=== PATIENT | female | born 1945 | race Caucasian/White ===

== ENCOUNTER 2016-10-08 14:15 | Emergency (ER) | payer MEDICARE, OTHER ==
[~2016-10-08] VITALS: Ht 154.9 cm; Wt 118.2 kg
[~2016-10-08 14:15] MED LIST: ADV25050 INH; ASPI-664 PO; ATOR10TA23 PO; DULO60CA6 PO; FENO145T19 PO; GEMF600T PO; HYDR-3672 PO; HYDR-902 PO; IPRA14.76 IH; LEVO25TA53 PO; LEVO500T10 PO; LORA1TAB PO; NEBI20TA2 PO; NIT4 SL; PRED20TA PO; Promethazine/Codeine Syp PO; RANO500T2 PO; ROPI2TAB7 PO; VALS1TAB60 PO; VERA240C4 PO; [UNRECOGNIZED DRUG - CODE] IH
[2016-10-08 14:29] VITALS: Ht 154.9 cm; Wt 118.2 kg
[2016-10-08] MEDS ORDERED: SOD CHLORIDE 0.9% 500 ML IV STA (14:45)
[2016-10-08] MEDS ORDERED: ROPI0.25 PO (14:45)
[2016-10-08] MEDS ORDERED: ALBU8.5H3 INH ×2 (14:46→17:58)
[2016-10-08] MEDS ORDERED: METHYLPREDNISOLONE 125 MG INJ IV ONE (15:00)
[2016-10-08] MEDS ORDERED: ALBUTEROL 0.5% (NEB) 2.5 MG/0.5 ML AMP INH ONE (15:00)
[2016-10-08] MEDS ORDERED: IPRATROPIUM (NEB) 0.5 MG/2.5 ML AMP INH ONE (15:00)
[2016-10-08] MEDS ORDERED: LORAZEPAM 2 MG INJ ONE (15:09)
--- NOTE | 2016-10-08 15:21 | RADRPT ---
PROCEDURE: XR Chest. CLINICAL INDICATION: Shortness of breath TECHNIQUE: Chest AP portable. COMPARISON: 08/25/2016 FINDINGS: The mediastinal structures are unremarkable. There is calcification of the thoracic aorta (consiste nt with atherosclerosis). There is moderate cardiac enlargement. There is mild pulmonary venous hy pertension. No consolidation is identified. The pleural spaces are unremarkable. There are senesc ent changes of the axial skeleton. IMPRESSION: Moderate cardiac enlargement. Mild pulmonary venous hypertension. RPTAT: HGDB .Isak Farmer MD, MD Date Time Electronically viewed and signed by .Isak Farmer MD, on 10/08/2016 15:21 .B/
[2016-10-08 15:23] LABS: BASOPHILS % 0.5 % (0.0-2.0); EOSINOPHILS # 0.3 10^3/ul (0.0-0.5); EOSINOPHILS % 3.1 % (0.0-7.0); HEMATOCRIT 34.8 % (37.0-47.0); HEMOGLOBIN 11.3 g/dl (12.0-16.0); LYMPHOCYTES # 2.3 10^3/ul (0.8-2.9); LYMPHOCYTES % 24.2 % (15.0-51.0); MEAN CORPUSCULAR HEMOGLOBIN 26.4 pg (29.0-33.0); MEAN CORPUSCULAR HGB CONC 32.4 g/dl (32.0-37.0); MEAN CORPUSCULAR VOLUME 81.5 fl (82.0-101.0); MEAN PLATELET VOLUME 8.2 fl (7.4-10.4); MONOCYTE # 0.7 10^3/ul (0.3-0.9); MONOCYTES % 7.7 % (0.0-11.0); NEUTROPHIL # 6.1 10^3/ul (1.6-7.5); NEUTROPHILS % 64.5 % (39.0-77.0); PLATELET COUNT 311 10^3/UL (140-440); RED BLOOD COUNT 4.28 10^6/ul (4.20-5.40); RED CELL DISTRIBUTION WIDTH 15.9 % (11.5-14.5); UNCORRECTED WBC 9.4 10^3/ul (4.8-10.8); WHITE BLOOD COUNT 9.4 10^3/ul (4.8-10.8)
[2016-10-08] MEDS ORDERED: LORAZEPAM 2 MG INJ IV ONE (15:30)
[2016-10-08] MEDS ORDERED: DICLOFENAC SODIUM 37.5 MG/ML VIAL IV STA (15:33)
[2016-10-08 15:40] LABS: CONDITION 1; LH ANALYZER COMMENTS 1
[2016-10-08 15:41] LABS: ALBUMIN 3.9 g/dl (3.3-4.9)
[2016-10-08 15:42] LABS: POTASSIUM 4.5 mmol/L (3.5-5.1)
[2016-10-08 15:44] LABS: ALBUMIN/GLOBULIN RATIO 1.3; BILIRUBIN,INDIRECT 0.1 mg/dl (0-1.1); BILIRUBIN,TOTAL 0.1 mg/dl (0.2-1.3); CREATININE 1.06 mg/dl (0.44-1.00); TOTAL PROTEIN 6.9 g/dl (6.1-8.1)
[2016-10-08 15:45] LABS: CALCIUM 9.2 mg/dl (8.4-10.2)
[2016-10-08] MEDS ORDERED: HYDROmorphONE 1 MG/ML SYG IV STA (16:10)
[2016-10-08] MEDS ORDERED: ONDANSETRON 4 MG INJ IV STA (16:10)
[2016-10-08] MEDS ORDERED: PRED20TA PO (17:58)
[2016-10-08] MEDS ORDERED: AZIT250T94 PO (17:58)
[2016-10-08] MEDS ORDERED: ULT50 PO (17:58)
--- NOTE | 2016-10-08 18:07 | ERD ---
ER Documentation Chief Complaint Date/Time DATE: 10/08/16 TIME: 18:02 Chief Complaint BROUGHT IN VIA EMS DUE TO SHORTNESS OF BREATH AND ANXIETY HPI This is 71-year-old female who is complaining of cough for 1 week having some productive clear sputum for the past 3 days. No fever. Patient says that she was having some wheezing today she called the ambulance. She also states she has chronic bilateral hip pain from arthritis and right knee pain because she needs a knee replacement. She has no shortness of breath chest pain fever no diaphoresis ROS All systems reviewed and are negative except as per history of present illness. Medications Home Meds Active Scripts Azithromycin* (Zithromax*) 250 Mg Tablet, 250 MG PO .ZPACK DIRECTED, #6 TAB TAKE 500 MG (2 TABS) THE FIRST DAY THEN 250 MG (1 TAB) DAYS 2-5 Prov:ANH DOLAN DO 10/08/16 Albuterol Sulfate* (Proair HFA*) 8.5 Gm Hfa.aer.ad, 2 PUFF INH Q6H Y for WHEEZING AND SOB, #1 INHALER Prov:ANH DOLAN DO 10/08/16 Prednisone* (Prednisone*) 20 Mg Tab, 60 MG PO DAILY for 5 Days, TAB Prov:ANH DOLAN DO 10/08/16 Tramadol HCl (Tramadol HCl) 50 Mg Tablet, 50 MG PO Q6, #20 TAB Prov:ANH DOLAN DO 10/08/16 Reported Medications Albuterol Sulfate* (Proair HFA*) 8.5 Gm Hfa.aer.ad, 2 PUFF INH Q4H Y for WHEEZING AND SOB, #1 INHALER 10/08/16 Ropinirole Hcl* (Ropinirole Hcl*) 0.25 Mg Tablet, 0.25 MG PO HS, TAB 10/08/16 Fenofibrate Nanocrystallized* (Fenofibrate*) 145 Mg Tablet, 145 MG PO DAILY, TAB 08/24/16 Ranolazine* (Ranexa*) 500 Mg Tab.sr.12h, 500 MG PO BID, TAB 08/24/16 Nitroglycerin* (Nitrostat*) 0.4 Mg Tab.subl, 0.4 MG SL Q5MIN Y for CHEST PAIN 12/16/13 Aspirin (Aspirin) 81 Mg Tablet.dr, 81 MG PO DAILY 12/16/13 Hydralazine Hcl* (Hydralazine Hcl*) 50 Mg Tablet, 100 MG PO TID 12/16/13 Lorazepam* (Lorazepam*) 1 Mg Tablet, 1 MG PO BID Y for ANXIETY 12/16/13 Nebivolol Hcl* (Bystolic*) 20 Mg Tablet, 20 MG PO DAILY 12/16/13 Ipratropium/Albuterol Sulfate (Combivent Inhaler) 14.7 Gm Aer.w.adap, 14.7 GM IH BID 09/29/11 Valsartan-Hydrochlorothiazide (Diovan HCT) 1 Tab Tablet, 1 TAB PO DAILY 09/29/11 Levothyroxine Sodium* (Levothyroxine Sodium*) 25 Mcg Tablet, 25 MCG PO DAILY 09/29/11 Atorvastatin (Lipitor) 10 Mg Tablet, 20 MG PO DAILY 09/29/11 Discontinued Reported Medications Hydrocodone/Acetaminophen ([place] 10-325 Tablet) 1 Each Tablet, 1 EACH PO Q6 Y for PAIN, TAB 08/24/16 Gemfibrozil* (Lopid*) 600 Mg Tablet, 600 MG PO BID, TAB 03/04/14 Albuterol/Ipratropium (Combivent) 14.7 Gm Inha, 14.7 GM IH BID for SHORTNESS OF BREATH 12/16/13 Salmeterol Xinaf/Fluticasone* (Advair*) 1 Inh Inha, 1 INH INH DAILY 12/16/13 Duloxetine Hcl* (Cymbalta*) 60 Mg Capsule.dr, 60 MG PO belem 12/16/13 Verapamil Hcl* (Verapamil Hcl*) 240 Mg Cap24h.pel, 240 MG PO BID 09/29/11 Ropinirole Hcl (Requip) 2 Mg Tablet, 0.25 MG PO DAILY 09/29/11 Discontinued Scripts Levofloxacin* (Levofloxacin*) 500 Mg Tablet, 500 MG PO DAILY for Pneumonia , #7 TAB Prov:FREYA ELIZABETH MD 08/26/16 Prednisone* (Prednisone*) 20 Mg Tab, 20 MG PO DAILY, #7 TAB Prov:FREYA ELIZABETH MD 08/26/16 [Promethazine/Codeine Syp] 5 ML SYRUP No Conflict Check, 10 ML PO Q6H Y for COUGH, #240 ML Prov:FREYA ELIZABETH MD 08/26/16 Allergies Allergies: Coded Allergies: morphine (Verified Allergy, Severe, NAUSEA, VOMITING, SHORTNESS OF BREATH , 07/13/16) Uncoded Allergies: IV IODINE (Allergy, Unknown, 07/13/16) PMhx/Soc History of Surgery: Yes (2hip surgery-21yrs) Anesthesia Reaction: No Hx Neurological Disorder: No Hx Respiratory Disorders: Yes (Asthma, Bronchitis, PNA) Hx Cardiac Disorders: Yes (HTN) Hx Psychiatric Problems: Yes (depression, anxiety) Hx Miscellaneous Medical Probl: No Hx Alcohol Use: No Hx Substance Use: No Hx Tobacco Use: No Smoking Status: Never smoker FmHx Family History: No coronary disease Physical Exam Vitals Vital Signs Date Time Temp Pulse Resp B/P Pulse Ox O2 Delivery O2 Flow Rate FiO2 10/08/16 15:21 98.3 86 20 98/58 98 Room Air 10/08/16 15:17 79 18 95 21 10/08/16 14:58 Nasal Cannula 10/08/16 14:29 98.5 70 18 127/63 94 Physical Exam Const: Well-developed, well-nourished Head: Atraumatic, normocephalic Eyes: Normal Conjunctiva, PERRLA, EOMI, normal sclera, no nystagmus ENT: Normal External Ears, Nose and Mouth, moist mucus membranes. Neck: Full range of motion. No meningismus, no lymphadenopathy. Resp: No increased work of breathing there is some slight end expiratory wheezing scattered throughout the lung andrade Cardio: Regular rate and rhythm, no murmurs, S1 S2 present Abd: Soft, non tender x 4, non distended. Normal bowel sounds, no guarding or rebound, no pulsitile abdominal masses or bruits Skin: No petechiae or rashes, no ecchymosis , no maculopapular rash Back: No midline or flank tenderness Ext: No cyanosis, or edema, FROM x 4 there is pain to both hips with range of motion in right knee which is chronic., normal inspection, neurovascularly intact x 4 Neur: Awake and alert, STR 5/5 x 4, sensation intact x 4, no focal findings, cerebellum intact Psych: Anxious Result Diagram: 10/08/16 1445 10/08/16 1445 Results 24 hrs Laboratory Tests Test 10/08/16 14:45 Alanine Aminotransferase (ALT/SGPT) 22IU/L Albumin 3.9g/dl Albumin/Globulin Ratio 1.30 Alkaline Phosphatase 52IU/L Anion Gap 17 Aspartate Amino Transf (AST/SGOT) 19IU/L Basophils # 0.010^3/ul Basophils % 0.5% Blood Morphology Comment Blood Urea Nitrogen 30mg/dl Calcium Level 9.2mg/dl Carbon Dioxide Level 28mmol/L Chloride Level 103mmol/L Creatinine 1.06mg/dl Direct Bilirubin 0.00mg/dl Eosinophils # 0.310^3/ul Eosinophils % 3.1% Globulin 3.00g/dl Glucose Level 83mg/dl Hematocrit 34.8% Hemoglobin 11.3g/dl Indirect Bilirubin 0.1mg/dl Lymphocytes # 2.310^3/ul Lymphocytes % 24.2% Mean Corpuscular Hemoglobin 26.4pg Mean Corpuscular Hemoglobin Concent 32.4g/dl Mean Corpuscular Volume 81.5fl Mean Platelet Volume 8.2fl Monocytes # 0.710^3/ul Monocytes % 7.7% Neutrophils # 6.110^3/ul Neutrophils % 64.5% Nucleated Red Blood Cells # 0.010^3/ul Nucleated Red Blood Cells % 0.0/100WBC Platelet Count 22674^3/UL Potassium Level 4.5mmol/L Red Blood Count 4.2810^6/ul Red Cell Distribution Width 15.9% Sodium Level 143mmol/L Total Bilirubin 0.1mg/dl Total Protein 6.9g/dl White Blood Count 9.410^3/ul Current Medications Medications (Trade) Dose Ordered Sig/Karina Route PRN Reason Start Time Stop Time Status Last Admin Dose Admin Sodium Chloride (NS) 500 ml @ 500 mls/hr Q1H STAT IV 10/08/16 14:45 10/08/16 15:44 DC 10/08/16 15:14 Albuterol (Proventil 0.5% (Neb)) 7.5 mg ONCE ONCE INH 10/08/16 15:00 10/08/16 15:01 DC 10/08/16 15:14 Ipratropium [place] (Atrovent 0.02% (Neb)) 0.5 mg ONCE ONCE INH 10/08/16 15:00 10/08/16 15:01 DC 10/08/16 15:16 Methylprednisolone Sodium Succinate (Solu-Medrol) 125 mg ONCE ONCE IV 10/08/16 15:00 10/08/16 15:01 DC 10/08/16 15:12 Lorazepam (Ativan) 1 mg ONCE ONCE IV 10/08/16 15:30 10/08/16 15:31 DC 10/08/16 15:40 Lorazepam (Ativan) 2 mg STK-MED ONCE .ROUTE 10/08/16 15:09 10/08/16 15:10 DC Diclofenac Sodium (Dyloject) 37.5 mg ONCE STAT IV 10/08/16 15:33 10/08/16 15:34 DC 10/08/16 15:40 Hydromorphone HCl (Dilaudid) 1 mg ONCE STAT IV 10/08/16 16:10 10/08/16 16:11 DC 10/08/16 17:58 Ondansetron HCl (Zofran Inj) 4 mg ONCE STAT IV 10/08/16 16:10 10/08/16 16:11 DC 10/08/16 17:57 Procedures/MDM PROCEDURE: XR Chest. CLINICAL INDICATION: Shortness of breath TECHNIQUE: Chest AP portable. COMPARISON: 08/25/2016 FINDINGS: The mediastinal structures are unremarkable. There is calcification of the thoracic aorta (consistent with atherosclerosis). There is moderate cardiac enlargement. There is mild pulmonary venous hypertension. No consolidation is identified. The pleural spaces are unremarkable. There are senescent changes of the axial skeleton. IMPRESSION: Moderate cardiac enlargement. Mild pulmonary venous hypertension. RPTAT: HGDB .Isak Farmer MD, Date Time Electronically viewed and signed by .Isak Farmer MD, on 10/08/2016 15:21 .B/ CC: ANH DOLAN DO EKG: Rate/Rhythm: Normal sinus rhythm heart rate 62, incomplete right bundle branch block QRS, ST, QT: NORMAL LA, QRS, QT] Impression: NORMAL EKG Patient received breathing treatments and is feeling better. X-ray shows no acute process. She received pain medication for her hip and knee pain. This is a chronic issue. No evidence of pneumonia. Patient likely has bronchitis/URI will treat symptomatically Departure Diagnosis: Primary Impression: Bronchitis Additional Impression: Chronic pain Chronic pain type: other chronic pain Qualified Code: G89.29 - Other chronic pain Condition: Stable Patient Instructions: Bronchitis, Antiobiotic Treatment (Adult), Chronic Pain ANH DOLAN DO Oct 08, 2016 18:07
[2016-10-08 18:49] VITALS: BP 129/86; PULSE 73; RESP 20; TEMP 98.3
== END 2016-10-08 18:49 | disposition home or self-care (01) ==
LOC: E/R 14:15
DX: J20.9 Acute bronchitis, unspecified (principal); G89.29 Other chronic pain; J45.909 Unspecified asthma, uncomplicated; I10 Essential (primary) hypertension; Z79.82 Long term (current) use of aspirin
CPT/HCPCS: 36415; 71010; 80053; 85025; 87040; 93005; 94664; 96374; 96375; 99284; J1170; J2060; J2405; J2930; J7040

== ENCOUNTER 2018-03-08 19:44 | Emergency (ER) | END 2018-03-09 00:30 | disposition home or self-care (01) ==

== ENCOUNTER 2018-03-29 15:06 | Emergency (ER) | END 2018-03-29 20:44 | disposition home or self-care (01) ==

== ENCOUNTER 2018-04-09 12:04 | Emergency (ER) | END 2018-04-09 16:43 | disposition home or self-care (01) ==

== ENCOUNTER 2018-06-15 05:12 | Inpatient (IN) | END 2018-06-18 20:05 | disposition home or self-care (01) | DRG 308 ==

== ENCOUNTER 2018-10-03 13:20 | Emergency (ER) | payer MEDICARE, OTHER ==
[~2018-10-03] VITALS: Wt 81.5 kg
[~2018-10-03 13:20] MED LIST changes: -ADV25050 INH; +ALBU8.5H8 INH; +AMLO-147 PO; +ASPI-1044 PO; -ASPI-664 PO; +BISA5TAB6 PO; +CHOL100062 PO; +D-ME473S2 PO; +DOCU-216 PO; -DULO60CA6 PO; -FENO145T19 PO; +FENO145T37 PO; +GABA100C14 PO; -GEMF600T PO; -HYDR-902 PO; +HYDR25SU23 PR; -IPRA14.76 IH; -LEVO25TA53 PO; +LEVO25TA6 PO; -LEVO500T10 PO; +MAG355OR14 PO; +NAPR-985 PO; -NEBI20TA2 PO; -NIT4 SL; +NITR0.4T39 SL; -PRED20TA PO; -Promethazine/Codeine Syp PO; -ROPI2TAB7 PO; -VALS1TAB60 PO; -VERA240C4 PO
--- NOTE | 2018-10-03 14:16 | ERD ---
ER Documentation Chief Complaint Chief Complaint bib self, cc: migraine x 3 weeks, chronic migraines, HPI The patient is a 73-year-old female, presenting to the ER because of acute on chronic migraine for the last 3 weeks, unrelieved with Imitrex, she has similar symptoms previously, relieved with Dilaudid. She is requesting for pain medication. She denies fever, chills, syncope, near syncope, facial pain, neck pain, chest pain, dyspnea, abdominal pain, vomiting, dysuria. She has headache almost daily, denies smoking or drinking Past medical history: Migraine, dyslipidemia, hypertension, anxiety, hypothyroidism, dyslipidemia, COPD, chronic kidney disease, CAD, carotid disease, history of narcotic dependence ROS All systems reviewed and are negative except as per history of present illness. Medications Home Meds Active Scripts Hydrocortisone Acetate (Anusol-Hc) 25 Mg Supp.rect, 25 MG OK BID for 28 Days, #30 SUPP.RECT Prov:ARELI NETTLES MD 06/18/18 Docusate Sodium (Dok) 100 Mg Capsule, 100 MG PO Q12H PRN for CONSTIPATION for 28 Days, #30 CAP Prov:ARELI NETTLES MD 06/18/18 Bisacodyl* (Bisacodyl*) 5 Mg Tablet.dr, 5 MG PO DAILY PRN for CONSTIPATION for 28 Days, #30 Prov:ARELI NETTLES MD 06/18/18 Dextromethorphan Hb-Promethazine Hcl* (Promethazine DM* Syrup) 473 Ml Syrup, 5 ML PO Q6H PRN for COUGH for 7 Days, #10 Prov:ARELI NETTLES MD 06/18/18 Gabapentin* (Gabapentin*) 100 Mg Capsule, 200 MG PO TID for 30 Days, #60 CAP Prov:ARELI NETTLES MD 06/18/18 Amlodipine Besylate* (Amlodipine Besylate*) 10 Mg Tablet, 10 MG PO DAILY for 28 Days, #30 TAB Prov:ARELI NETTLES MD 06/18/18 Mag Hydrox/Al Hydrox/Simeth (Maalox Advanced Suspension) 355 Ml Oral.susp, 2 TSP PO TID, #24 OZ Prov:DARLENE ALCALA MD 04/09/18 Naproxen* (Naprosyn*) 500 Mg Tablet, 500 MG PO BID PRN for PAIN AND/OR INFLAMMATION, #30 TAB Prov:SCOTT ROSENTHAL MD 03/29/18 Reported Medications Cholecalciferol* (Vitamin D3*) 1,000 Unit Tablet, 1000 UNIT PO DAILY, TAB 03/08/18 Albuterol Sulfate* (Proair HFA*) 8.5 Gm Hfa.aer.ad, 2 PUFF INH Q4H PRN for WHEEZING AND SOB, #1 INHALER 10/08/16 Fenofibrate Nanocrystallized* (Fenofibrate*) 145 Mg Tablet, 145 MG PO DAILY, TAB 08/24/16 Ranolazine* (Ranexa*) 500 Mg Tab.sr.12h, 500 MG PO BID, TAB 08/24/16 Nitroglycerin* (Nitrostat*) 0.4 Mg Tab.subl, 0.4 MG SL Q5MIN PRN for CHEST PAIN 12/16/13 Aspirin Delayed Release (Aspirin Delayed Release) 81 Mg Tablet.dr, 81 MG PO DAILY 12/16/13 Hydralazine Hcl* (Hydralazine Hcl*) 50 Mg Tablet, 100 MG PO TID 12/16/13 Lorazepam* (Lorazepam*) 1 Mg Tablet, 1 MG PO BID PRN for ANXIETY 12/16/13 Ipratropium/Albuterol Sulfate (Combivent Inhaler) 14.7 Gm Aer.w.adap, 14.7 GM IH BID 09/29/11 Levothyroxine Sodium* (Levothyroxine Sodium*) 25 Mcg Tablet, 25 MCG PO DAILY 09/29/11 Atorvastatin (Lipitor) 10 Mg Tablet, 20 MG PO DAILY 09/29/11 Allergies Allergies: Coded Allergies: morphine (Unverified Allergy, Severe, NAUSEA, VOMITING, SHORTNESS OF B REATH, 10/03/18) Iodine and Iodide Containing Produc (Unverified Allergy, Unknown, 10/03/18) Uncoded Allergies: IV IODINE (Adverse Reaction, Unknown, 03/08/18) PMhx/Soc History of Surgery: Yes (HIP REPLACEMENT, KNEE REPLACEMENT) Anesthesia Reaction: No Hx Neurological Disorder: No Hx Respiratory Disorders: No (COPD) Hx Cardiac Disorders: Yes (HTN,CAD) Hx Psychiatric Problems: No Hx Miscellaneous Medical Probl: Yes (See EMR for details. ) Hx Alcohol Use: No Hx Substance Use: No Hx Tobacco Use: No Physical Exam Vitals Vital Signs Date Temp Pulse Resp B/P (MAP) Pulse Ox O2 O2 Flow FiO2 Time Delivery Rate 10/03/18 79 20 130/78 100 Room Air 15:51 (95) 10/03/18 97.8 81 19 131/84 100 Room Air 14:58 (100) 10/03/18 97.8 76 19 131/84 100 13:28 (100) Physical Exam Const: No acute distress. Head: Atraumatic. Eyes: Normal Conjunctiva. ENT: Normal External Ears, Nose and Mouth. Neck: Full range of motion. No meningismus. Resp: Clear to auscultation bilaterally. Cardio: Regular rate and rhythm. Abd: Soft, non distended, normal bowel sounds, non tender. Skin: No petechiae or rashes. Back: No midline or flank tenderness. Ext: No cyanosis, or edema. Neur: Awake and alert. No focal deficit Psych: Very anxious Results 24 hrs Current Medications Medications Dose Sig/Karina Start Time Status Last (Trade) Ordered Route PRN Stop Time Admin Dose Reason Admin 0.5 mg ONCE STAT 10/03/18 DC 10/03/18 Hydromorphone IM 14:46 10/03/18 14:57 HCl 14:50 (Dilaudid) Ondansetron 4 mg ONCE STAT 10/03/18 DC 10/03/18 HCl (Zofran ODT 14:51 10/03/18 14:58 Odt) 14:52 Ondansetron 4 mg STK-MED 10/03/18 DC HCl (Zofran ONCE ODT 14:53 10/03/18 Odt) 14:54 Procedures/[place] [id number] Radiology Main Line: [phone] DIAGNOSTIC IMAGING REPORT Patient: PAWAN WILLIS : 1945 Age: 73 Sex: F MR #: [id number] DOS: 10/03/18 1446 Ordering MD: JUN COTO MD Location: E/R Room/Bed: PROCEDURE: CT Brain without contrast. CLINICAL INDICATION: Headache. TECHNIQUE: A CT of the brain without contrast was performed utilizing axial sections from the skull base through the vertex. One or more the following does reduction techniques were utilized: Automated exposure control, adjustment of the mA/ or kV according to patient's size, or use of iterative reconstruction technique. Total exam CTDIvol is 38.2 MGy and DLP is 713.51 mGy-cm. DICOM images are available. COMPARISON: Brain CT 06/15/2018. FINDINGS: The ventricles and sulci are mildly to moderately prominent indicative of volume loss. There is no intracranial hemorrhage, mass effect or midline shift. No abnormal intra-axial or extra-axial fluid collections are seen. The dial/white matter differentiation is preserved. There are mild foci of hypoattenuation in the white matter, which are nonspecific in etiology but likely reflect chronic small vessel ischemic changes. There are mild intracranial vascular calcifications consistent with atherosclerosis. The visualized paranasal sinuses demonstrate partial opacif ication of left greater than right ethmoid air cells. The mastoid air cells are essentially clear. There is thinning of bilateral lens indicative of prior lens replacement. IMPRESSION: 1. No acute intracranial hemorrhage, transcortical infarction or mass effect. 2. Mild intracranial atherosclerosis and chronic small vessel ischemic changes. 3. Mild to moderate generalized cerebral volume loss. RPTAT: HFN .Jens Reed MD, MD Date Time Electronically viewed and signed by .Jens Reed MD, MD on 10/03/2018 15:27 .N/ CC: JUN COTO MD [id number] MEDICAL MAKING DECISION: The patient is a 73-year-old female, presenting with acute migraine exacerbation, treated with Dilaudid 1 mg IM and Zofran ODT for headache and nausea with good response, as above outpatient follow-up The differential diagnoses considered include but are not limited to subarachnoid hemorrhage, occult trauma, CVA, meningitis, encephalitis, hypertension, tension, migraine, cluster, narcotic withdrawal, cervical spine disease. Departure Diagnosis: Primary Impression: Migraine Condition: Good Comments I discussed the findings with the patient. I advised the patient to follow-up with the local neurologist Dr. Perales in about 2-3 days, sooner if needed and return if any concern. Disclaimer: Inadvertent spelling and grammatical errors are likely due to EHR/dictation software use and do not reflect on the overall quality of patient care. Also, please note that the electronic time recorded on this note does not necessarily reflect the actual time of the patient encounter. JUN COTO MD Oct 03, 2018 14:16
[2018-10-03] MEDS ORDERED: HYDROmorphONE 0.5 MG/0.5 ML SYG IM STA (14:46)
[2018-10-03] MEDS ORDERED: ONDANSETRON (ODT) 4 MG TAB ODT STA (14:51)
[2018-10-03] MEDS ORDERED: ONDANSETRON (ODT) 4 MG TAB ODT ONE (14:53)
[2018-10-03 15:51] VITALS: BP 130/78; PULSE 79; RESP 20
== END 2018-10-03 15:52 | disposition home or self-care (01) ==
LOC: E/R 13:20
DX: G43.909 Migraine, unspecified, not intractable, without status migrainosus (principal); E03.9 Hypothyroidism, unspecified; I25.10 Atherosclerotic heart disease of native coronary artery without angina pectoris; J44.9 Chronic obstructive pulmonary disease, unspecified; I12.9 Hypertensive chronic kidney disease with stage 1 through stage 4 chronic kidney disease, or unspecified chronic kidney disease; N18.9 Chronic kidney disease, unspecified; Z96.659 Presence of unspecified artificial knee joint; Z96.649 Presence of unspecified artificial hip joint; Z79.82 Long term (current) use of aspirin
CPT/HCPCS: 70450; 96372; 99285; J1170